=== PATIENT | female | born 1990 | race Hispanic/Latino ===

== ENCOUNTER 2021-06-16 14:08 | Inpatient (IN) | payer BC, OTHER ==
[~2021-06-16] VITALS: Ht 157.5 cm; Wt 72.6 kg
--- NOTE | 2021-06-18 12:52 | NUR ---
06/18/21 1252 Marina Mandujano 1132 PT ARRIVED IN PACU AWAKE AND ITCHING SKIN ON ARMS/CHEST. ANESTHESIA AWARE AND GAVE MEDS IN SURGERY. 1135 FBC RN AT BEDSIDE AND TC TO INTERPRETOR LINE TO HELP TRANSLATE. ON HOLD FOR 8 MINUTES AND DISCONNECTED. HELPING WITH TRANSLATION. 1143 TC TO INTERPRETOR LINE AND ON HOLD FOR 6 MINUTES WITH NO CONNECTION. HELPING TRANSLATE. 1155 TC TO ANESTHESIA FOR MEDICATION FOR PT'S ITCHING. 1209 NEW ORDERS RECEIVED. NUBAIN 10MG GIVEN SUB Q IN L ARM. FBC RN AT BEDSIDE. 1215 REPORT GIVEN TO RN.
--- NOTE | 2021-06-19 08:11 | PR ---
[facility] [address] [facility] [place], [place] [address] Signed PP Progress Notes Datetime Report Generated by CPN: 06/19/2021 08:11 SUBJECTIVE: [id number] Pain: Within Normal Limits Nausea/Vomiting: Denies Flatus: No Vital Signs: [id number] Vital Signs: Reviewed; Within Normal Limits EXAM: Ongoing Cardiovascular: Normal Respiratory: Normal Abdomen/Uterus: Abnormal Lochia: Normal Vulva/Perineum: Not Done Breasts: Not Done CVA Tenderness: Not Done Extremities: Normal Incision: Normal Progress: Abnormal Exam Comments: Abdomen with active BS. Fundus firm, NT @ U-2. H/H 10.5/31.4, WBC 8.6, plat 235k IMPRESSION/PLAN/PROCEDURES: [id number] Impression: Normal Progression Other Plans: ambulate, shower, Hoover out Progress Notes: Doing well. Signing Physician: Brigitte Lorenzo MD Copies: ~ *Electronically Signed* 06/19/21810 BRIGITTE LORENZO MD PATIENT NAME: LESLIE HARDY PROGRESS NOTE DATE OF : 88 PHYSICIAN: BRIGITTE LORENZO MD RPT #: [id number] REPORT IS CONFIDENTIAL AND NOT TO BE RELEASED WITHOUT AUTHORIZATION
--- NOTE | 2021-06-20 08:41 | PR ---
[facility] [address] [facility] [place], [place] [address] Signed PP Progress Notes Datetime Report Generated by CPMoses: 06/20/2021 08:41 SUBJECTIVE: [id number] Pain: Within Normal Limits Nausea/Vomiting: Denies Flatus: Yes Bowel Movement: No Vital Signs: [id number] Vital Signs: Reviewed; Within Normal Limits EXAM: Ongoing Cardiovascular: Normal Respiratory: Normal Abdomen/Uterus: Abnormal Lochia: Normal Vulva/Perineum: Not Done Breasts: Not Done CVA Tenderness: Not Done Extremities: Normal Incision: Normal Progress: Normal Exam Comments: Abdomen with active BS. Fundus firm, NT @ U-2. IMPRESSION/PLAN/PROCEDURES: [id number] Impression: Normal Progression Plan: Remove Elissa; Discharge Other Plans: ambulate, shower, Hoover out Procedures: None Progress Notes: Doing well except for gas pain. Encouraged ambulation and warm liquids. She is stable for discharge. Signing Physician: Brigitte Lorenzo MD Copies: ~ *Electronically Signed* 06/20/21 0841 BRIGITTE LORENZO MD PATIENT NAME: LESLIE HARDY PROGRESS NOTE DATE OF : 88 PHYSICIAN: BRIGITTE LORENZO MD RPT #: [id number] REPORT IS CONFIDENTIAL AND NOT TO BE RELEASED WITHOUT AUTHORIZATION
--- NOTE | 2021-06-25 09:46 | OR ---
[facility] [address] [place], [place] [address] Signed DATE OF OPERATION: 06/18/2021 SURGEON: Brigitte Lorenzo MD SPECIALIST MANAGERS: Deon Orosco MD. PREOPERATIVE DIAGNOSES: 37+ week , previous multiple myomectomy, gestational diabetes, cholestasis of . POSTOPERATIVE DIAGNOSES: 37+ week , previous multiple myomectomy, gestational diabetes, cholestasis of , delivered. PROCEDURE: Primary section with low segment transverse uterine incision. ANESTHESIA: Spinal. ESTIMATED BLOOD LOSS: 700 mL. DRAINS: Hoover catheter. INDICATIONS AND FINDINGS: The patient is a 31-year-old female, 3, para 0, SAB 2, who is now at 37 and 1/7th weeks admitted for primary section because of her history of multiple myomectomy. She has been counseled and wished to proceed. She was taken to the operating room and she was delivered of a little girl via lower segment transverse uterine incision from the ROP position with Apgars of 8 and 9 and weight of 7 pounds 1 ounce. Uterus appeared normal. The tubes and ovaries appeared normal as well. The placenta also appeared normal, though it was a little bit more adherent posteriorly than normally seen. DESCRIPTION OF PROCEDURE: The patient was prepped and draped in the supine position. A Pfannenstiel skin incision was made and carried down through the fascia. The incision was extended laterally. The Electronically Signed By: BRIGITTE LORENZO MD 06/25/21 0946 PATIENT NAME: LESLIE HARDY OPERATIVE REPORT DATE OF : 88 REPORT #: [id number] PHYSICIAN: BRIGITTE LORENZO MD PCP: NO PRIMARY CARE PHYSICIAN REPORT IS CONFIDENTIAL AND NOT TO BE RELEASED WITHOUT AUTHORIZATION [facility] [address] [place], [place] [address] Signed inferior and superior fascial flaps were then created. The muscles were bluntly divided and the peritoneum entered sharply and the incision extended bluntly. The Thierno retractor was then placed. An incision was made over the uterine surface at the upper aspect of the peritoneal reflection. This incision was extended bluntly. There was some difficulty with delivery of the baby's head and a tiny clip was made on the patient's left side to give just a little bit more room and the baby delivered at that point. There was a nuchal cord x1. Following this, the placenta was removed manually and the uterus explored showing no remaining fragments. The edges of the incision were identified and the uterus closed in 2 layers using 0 Monocryl. The first layer was a running locking stitch and the second was a vertical imbricating stitch. Additional [id number] sutures were required near the patient's right angle for control of bleeding. The abdomen was then copiously irrigated, inspected and good hemostasis was noted. The retractor was removed and the peritoneum identified. An ACell graft was then laid over the incision to aid in healing. The peritoneum was then closed in a running suture of 3-0 Vicryl. The muscles were brought together with interrupted sutures of 0 Vicryl. Bleeding points were controlled with cautery. This layer was then irrigated and inspected and good hemostasis was noted. ACell powder was sprinkled over the muscles to aid in healing. The fascia was then closed from each angle to the midline with a running suture of 0 Vicryl. Following this, the subcu space was irrigated and bleeding points controlled with cautery. The deep space was closed with interrupted sutures of 3-0 Vicryl. The skin was closed with lennox. All sponge and needle counts were correct. She tolerated procedure well and was taken to the recovery room in good condition. Brigitte Lorenzo MD PJW/MODL /[id number] cc: Deon Orosco MD Copies: DEON OROSCO MD ~ Electronically Signed By: BRIGITTE LORENZO MD 06/25/21 0946 PATIENT NAME: ROJAS LESLIE HAMPTON OPERATIVE REPORT DATE OF : 88 REPORT #: [id number] PHYSICIAN: BRIGITTE LORENZO MD PCP: NO PRIMARY CARE PHYSICIAN REPORT IS CONFIDENTIAL AND NOT TO BE RELEASED WITHOUT AUTHORIZATION
--- NOTE | 2021-06-27 09:24 | PATH ---
[facility] [place] [facility] [address] [place], [place] [address] Signed SPECIMEN(S): A PLACENTA SPECIMEN SOURCE: A. PLACENTA CLINICAL HISTORY: Mother's age: 31. OB history: A2. Gestational age: 37.1. Infant's weight: 7 lb 1 oz. score: 8/9. Antibody screen: Negative. Maternal serologies: Rubella immune. 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 FINAL PATHOLOGIC DIAGNOSIS: Placenta (540 grams), umbilical cord and membranes: - Placental weight: Approximately 77th percentile for gestational age. - Chorionic villi with - Appropriate maturation for gestational age. - Focal microcalcifications. - No significant villous infarction identified. - No evidence of trophoblastic disease. - Completeness of cotyledons cannot be ascertained due to fragmentation of placenta (see gross description). - Three-vessel umbilical cord without pathologic abnormality. - membranes with meconium staining (see comment). - No evidence of an infectious or inflammatory process. COMMENT: The membranes show incorporation of meconium into macrophages, indicating that the meconium staining seen grossly had been present for some time. TWK:[facility]:C2NR MICROSCOPIC EXAMINATION: Histologic sections of all submitted blocks are examined by light microscopy. These findings, together with the gross examination, support the pathologic diagnosis. GROSS DESCRIPTION: The specimen, labeled "GN, placenta," is received in formalin and consists of johnson discoid placenta with the following parameters: Umbilical cord: Insertion eccentric-4.4 cm from the margin, measurement 16.5 x 1.3 cm; trivascular. Cord coiling index (per 10 cm): Grossly indeterminate. Lesions: Not grossly identified. PATIENT NAME: LESLIE HARDY PATHOLOGY DATE OF : 88 REPORT #: [id number] PHYSICIAN: ANGELITA PATHOLOGY PCP: NO PRIMARY CARE PHYSICIAN REPORT IS CONFIDENTIAL AND NOT TO BE RELEASED WITHOUT AUTHORIZATION [facility] [place] [facility] [address] [place], [place] [address] Signed Membranes: Insertion site: Marginal, erickson, translucent with a markedly green hue, rupture site grossly indeterminate. Intact. Other: Not grossly identified. Chorionic Plate: Normal radiating vascular pattern, blue-purple, shiny with a slight green hue. Lesions: Not grossly identified. Other: Not grossly identified. Maternal Surface: The disc has a focal, 2.2 x 0.7 cm defect near the periphery. Due to the defect the intact nature of the cotyledons cannot be determined. Additionally the maternal surface has multiple, focal areas with your blood clot from less than 0.1 up to 0.5 cm in greatest dimension and comprising less than 5% of the disc. Lesions: Not grossly identified. Measurement: 17.7 x 17.2 x 3.7 cm. Weight (trimmed): 540 g Cut Surface: Maroon and spongy. Lesions: Not grossly identified. Basal plate fibrin 0.1 cm in thickness. Other Findings: Not grossly identified. Cassette Summary: (A1) membranes and umbilical cord (A2) eccentric section of placenta including defect (A3) central section of placenta (A4) eccentric section of placenta AI (under the direct supervision of a pathologist) The Gross Description was prepared using a voice recognition system. The report was reviewed for accuracy; however, sound-alike word errors, addition and/or deletions may occur. If there is any question about this report, please contact Client Services. PERFORMING LABORATORY: The technical component was performed by [facility], [address] [place] [address] (Airport Utility Worker: Mary Landon MD; CLIA# [id number]). Professional interpretation was performed by [facility], [address] [address] (CLIA# [id number]). Diagnostician: Sen Ferguson MD Pathologist Electronically Signed 06/27/2021 Copies: PATIENT NAME: LESLIE HARDY PATHOLOGY DATE OF : 88 REPORT #: [id number] PHYSICIAN: ANGELITA PATHOLOGY PCP: NO PRIMARY CARE PHYSICIAN REPORT IS CONFIDENTIAL AND NOT TO BE RELEASED WITHOUT AUTHORIZATION [facility] [place] [facility] [address] [place], [place] [address] Signed ~ PATIENT NAME: LESLIE HARDY PATHOLOGY DATE OF : [birth year] REPORT #: [id number] PHYSICIAN: ANGELITA GIRON PCP: NO PRIMARY CARE PHYSICIAN REPORT IS CONFIDENTIAL AND NOT TO BE RELEASED WITHOUT AUTHORIZATION
== END 2021-06-20 15:25 | disposition home or self-care (01) | DRG 786 ==
LOC: FBC 06-18 06:52
PROVIDERS: ADMIT Obstetrics & Gynecology; ATTEND Obstetrics & Gynecology
PROC: 10D00Z1 Extraction of Products of Conception, Low, Open Approach (ICD-10-PCS; principal; 2021-06-18 09:00)
DX: O34.29 Maternal care due to uterine scar from other previous surgery (principal); K83.1 Obstruction of bile duct; O26.62 Liver and biliary tract disorders in childbirth; O64.0XX0 Obstructed labor due to incomplete rotation of fetal head, not applicable or unspecified; O69.81X0 Labor and delivery complicated by cord around neck, without compression, not applicable or unspecified; O24.429 Gestational diabetes mellitus in childbirth, unspecified control; Z3A.37 37 weeks gestation of pregnancy; Z37.0 Single live birth
CPT/HCPCS: 01961; 85027; A9270; J0690; J1200; J2001; J2274; J2300; J2405; J2550; J2590; J2765; J7121; Q0177

== ENCOUNTER 2025-08-25 05:06 | Inpatient (IN) | payer BC, OTHER ==
[~2025-08-25] VITALS: Ht 160 cm; Wt 77.1 kg
[~2025-08-25 05:06] MED LIST: DEXTROSE 5% - NACL 0.45% 1,000 ML IV SCH; Insulin Regular 100 Unit/100 Ml Bag IV SCH
[2025-08-25] MEDS ORDERED: SOD+POT BICARB/CITRIC ACID 2 EA TABLET.EFF PO ONE (05:30)
[2025-08-25] MEDS ORDERED: LACTATED RINGER'S 1,000 ML IV PRN (05:30)
[2025-08-25] MEDS ORDERED: ACYCLOVIR 400 MG TAB PO ONE (05:30)
[2025-08-25 05:56] LABS: MCH 28.8 PG (25.6-32.2); MCHC 33.1 g/dL (32.2-35.5); MCV 86.9 fL (79.4-94.8); RBC 3.96 M/uL (3.93-5.22)
[2025-08-25 06:11] LABS: AMPHETAMINES, URINE NEGATIVE (NEGATIVE); BARBITURATES, URINE NEGATIVE (NEGATIVE); BENZODIAZEPINE, URINE NEGATIVE (NEGATIVE); CANNABINOID, URINE NEGATIVE (NEGATIVE); COCAINE, URINE NEGATIVE (NEGATIVE); ECSTASY, URINE NEGATIVE (NEGATIVE); FENTANYL, URINE NEGATIVE (NEGATIVE); METHADONE, URINE NEGATIVE (NEGATIVE); OPIATES, URINE NEGATIVE (NEGATIVE); OXYCODONE, URINE NEGATIVE (NEGATIVE); PHENCYCLIDINE, URINE NEGATIVE (NEGATIVE)
[2025-08-25 06:25] VITALS: BP 109/68
[2025-08-25 06:35] LABS: ABO O; RH POSITIVE
[2025-08-25 06:36] LABS: ANTIBODY SCREEN NEGATIVE
[2025-08-25] MEDS ORDERED: CEFAZOLIN SODIUM 2 GM in SODIUM CHLORIDE 0.9% 100 ML IV SCH (07:00)
[2025-08-25] MEDS ORDERED: fentaNYL citrate 100 MCG/2 ML VIAL ONE (07:21)
[2025-08-25] MEDS ORDERED: MORPHINE SULFATE 1 MG/ML VIAL ONE (07:21)
[2025-08-25] MEDS ORDERED: BUPIVACAINE 0.75% IN DEXTROSE 2 ML AMP ONE (07:23)
[2025-08-25] MEDS ORDERED: LIDOCAINE HCL 2% 5 ML SDV ONE (07:23)
[2025-08-25] MEDS ORDERED: PHENYLEPHRINE HCL IN 0.9% NACL 1 MG/10 ML SYR ONE ×2 (07:28→08:16)
[2025-08-25] MEDS ORDERED: DEXAMETHASONE SOD PHOS 4 MG/ML VIAL ONE (07:57)
[2025-08-25] MEDS ORDERED: Ropivacaine HCl 0.5% 30 ML VIAL ONE (07:58)
[2025-08-25] MEDS ORDERED: SODIUM CHLORIDE 0.9% 20 ML IV ONE (07:58)
[2025-08-25] MEDS ORDERED: NALOXONE HCL 0.4 MG SYR IV PRN ×2 (08:30)
[2025-08-25] MEDS ORDERED: IBLOOD GLUCOSE TEST STRIP 1 EA TEST VI PRN (08:30)
[2025-08-25] MEDS ORDERED: KETOROLAC TROMETHAMINE 30 MG/ML VIAL IV PRN ×2 (08:30)
[2025-08-25] MEDS ORDERED: HYDROmorphone HCL 1 MG/ML SYR IV PRN (08:30)
[2025-08-25] MEDS ORDERED: LACTATED RINGER'S 1,000 ML IV SCH (08:56)
[2025-08-25] MEDS ORDERED: HYDROCODONE/ACETA 5/325 TAB PO PRN (09:00)
[2025-08-25] MEDS ORDERED: METOCLOPRAMIDE HCL 10 MG/2 ML SDV IV PRN (09:00)
[2025-08-25] MEDS ORDERED: OXYCODONE/APAP 5/325 TAB PO PRN (09:00)
[2025-08-25] MEDS ORDERED: PROMETHAZINE HCL 25 MG TAB PO PRN (09:00)
[2025-08-25] MEDS ORDERED: PROCHLORPERAZINE EDISYLATE 10 MG/2 ML VIAL IV PRN (09:00)
[2025-08-25] MEDS ORDERED: SENNOSIDES/DOCUSATE 1 EA TAB PO SCH (09:00)
[2025-08-25] MEDS ORDERED: OXYTOCIN/0.9 % SODIUM CHLORIDE 500 ML IV SCH (09:00)
[2025-08-25] MEDS ORDERED: PROMETHAZINE HCL 25 MG SUPP PR PRN (09:00)
[2025-08-25 09:34] VITALS: BP 89/50
--- NOTE | 2025-08-25 09:41 | NUR ---
08/25/25 0941 Nata Lehman 0855- FUNDAL CHECK DONE IN THE OR. SMALL CLOT NOTED. 0856- PT ARRIVES TO ROOM. PT DENIES PAIN AND NAUSEA. PT RESTING. ALL MONITORS PUT IN PLACE. VSS. PT HAS A NATURAL AIRWAY AND IS ANSWERING QUESTIONS APPROPRIATELY. PT IS [facility] SPEAKING. FBC NURSE AT BEDSIDE. 2 IV SITES. ONE IN THE LEFT FOREARM AND ONE IN THE RIGHT. THE ONE ON THE LEFT IS INFUSING LR, AND THE ONE IN THE RIGHT IS SALINE LOCKED, WNL. 0906- BABY IS ON MOTHERS CHEST. 0910- MOTHERS CBG IS 98 AT THIS TIME. 0913- MOTHER IS RESTING WITH EYES CLOSED. SHE EASILY WAKES TO VERBAL STIMULI. SMALL AMOUNT OF SNORING NOTED. 0924- BEDSIDE REPORT GIVEN TO CHUY RAMOS. ALL QUESTIONS AND CONCERNS ANSWERED. BABY IS AT BREAST. PT IS RESTING WITH EYES CLOSED. CARE TURNED OVER AT THIS TIME.
[2025-08-25] MEDS ORDERED: SIMETHICONE 80 MG CHEW PO SCH (11:00)
[2025-08-25] MEDS ORDERED: KETOROLAC TROMETHAMINE 30 MG/ML VIAL IV SCH (14:00)
[2025-08-25] MEDS ORDERED: ENOXAPARIN SODIUM 40 MG/0.4 ML SYR SUB-Q SCH (16:00)
[2025-08-26] MEDS ORDERED: LACTATED RINGER'S 1,000 ML IV SCH (05:00)
[2025-08-26 05:16] LABS: MCH 29.4 PG (25.6-32.2); MCHC 33.4 g/dL (32.2-35.5); MCV 87.8 fL (79.4-94.8); RBC 3.37 M/uL (3.93-5.22)
--- NOTE | 2025-08-26 08:33 | PR ---
[facility] [address] [facility] [place], [place] [address] Signed PP Progress Notes Datetime Report Generated by CPN: 08/26/2025 08:32 SUBJECTIVE: [id number] Pain: Within Normal Limits Nausea/Vomiting: Denies Flatus: Yes Bowel Movement: No Vital Signs: [id number] Vital Signs: Reviewed EXAM: Ongoing EXAM: Ongoing Cardiovascular: Normal Respiratory: Normal Abdomen/Uterus: Normal Lochia: Normal Vulva/Perineum: Not Done Breasts: Not Done CVA Tenderness: Normal Extremities: Normal Incision: Normal Progress: Normal Exam Comments: Fundus firm U-2 nontender IMPRESSION/PLAN/PROCEDURES: [id number] Impression: Normal Progression Plan: Continue Present Management Progress Notes: Pt seen and examined. Doing well. Ambulating and tolerating full diet. Hoover out. No concerns. Pain and lochia minimal. Breastefeding. Hgb 9.9. Desires d/c home tomorrow. Signing Physician: Ascencion Rockwell DO Copies: ~ *Electronically Signed* 08/26/25 0832 ASCENCION ROCKWELL (ELIA) DO PATIENT NAME: LESLIE HARDY PROGRESS NOTE DATE OF : 88 PHYSICIAN: ASCENCION ROCKWELL (ELIA) DO RPT #: [id number] REPORT IS CONFIDENTIAL AND NOT TO BE RELEASED WITHOUT AUTHORIZATION
[2025-08-26] MEDS ORDERED: IBUPROFEN 600 MG TAB PO SCH (14:00)
--- NOTE | 2025-08-27 07:48 | PR ---
[facility] [address] [place], [place] [address] Signed PP Progress Notes Datetime Report Generated by CPN: 08/27/2025 07:48 Pain: Within Normal Limits Nausea/Vomiting: Denies Flatus: Yes BM Comments: loose stools Vital Signs: Reviewed; Within Normal Limits EXAM: Ongoing EXAM: Ongoing Cardiovascular: Normal Respiratory: Normal Abdomen/Uterus: Normal Lochia: Normal Vulva/Perineum: Not Done Breasts: Not Done CVA Tenderness: Normal Extremities: Normal Incision: Normal Progress: Normal Exam Comments: Fundus firm U-2 nontender. Incision healing well Impression: Normal Progression Plan: Remove Buckner; Discharge Progress Notes: Pt seen and examined. Doing well. Ambulating, voiding, and tolerating full diet. Pain and lochia minimal. Breast and bottle feeding. No concerns. Desires d/c home today. Reviewed medications, d/c instructions, and course. Rx's sent electronically. Reviewed GDM and recommended pt check glucose levels at home is they feel high or low. Will perform 2 hr fasting glucose 6-12 wks pp. All questions answered. Elissa out prior to d/c Signing Physician: Ascencion Rockwell DO Copies: ~ *Electronically Signed* 08/27/25 0748 ASCENCION ROCKWELL (ELIA) DO PATIENT NAME: LESLIE HARDY PROGRESS NOTE DATE OF : 88 PHYSICIAN: ASCENCION ROCKWELL (JD) DO RPT #: [id number] REPORT IS CONFIDENTIAL AND NOT TO BE RELEASED WITHOUT AUTHORIZATION
--- NOTE | 2025-08-29 11:42 | PATH ---
[facility] [address] [place], [place] [address] Signed SPECIMEN(S): A FALLOPIAN TUBES, BILATERAL SPECIMEN SOURCE: A. FALLOPIAN TUBES, BILATERAL CLINICAL HISTORY: Repeat FINAL PATHOLOGIC DIAGNOSIS: Bilateral fallopian tubes: - Two segments of benign fimbriated oviduct. JVR MICROSCOPIC EXAMINATION: Histologic sections of all submitted blocks are examined by light microscopy. These findings, together with the gross examination, support the pathologic diagnosis. GROSS DESCRIPTION: The specimen, labeled and designated "Reynoso-Saldivar, bilateral fallopian tubes," is received in formalin and consists of two red-brown fimbriated fallopian tube segments (8.2 cm in length and ranging in diameter from 0.7 to 1.4 cm, and 9.0 cm in length and ranging in diameter from 0.9 to 2.3 cm). One of the segments contains a paratubal cysts (1.8 x 1.5 x 1.4 cm), and the segment is inked blue. Both segments are serially sectioned to reveal red-brown soft cut surfaces. The paratubal cyst is sectioned to reveal a clear viscous material. Sales And Marketing Coordinator sections including the fimbriae entirely are submitted in cassette (A1-A2). VB (under the direct supervision of a pathologist) The Gross Description was prepared using a voice recognition system. The report was reviewed for accuracy; however, sound-alike word errors, addition and/or deletions may occur. If there is any question about this report, please contact Client Services. ADDITIONAL NOTES: Immunohistochemical and/or in situ hybridization studies if performed in this case included appropriate positive controls that reacted as expected. This test was developed and its performance characteristics determined by [facility]. It has not been cleared or approved by the U.S. Food and Drug Administration. The FDA has determined that PATIENT NAME: LESLIE HARDY PATHOLOGY DATE OF : 88 REPORT #: [id number] PHYSICIAN: ANGELITA GIRON PCP: KAUSHIK HOWELL CNM REPORT IS CONFIDENTIAL AND NOT TO BE RELEASED WITHOUT AUTHORIZATION [facility] [address] [facility] [place], [place] [address] Signed such clearance or approval is not necessary. This test is used for clinical purposes. It should not be regarded as investigational or for research. [facility] is certified under the Clinical Laboratory Improvement Amendments of 1988 (CLIA) as qualified to perform high complexity clinical laboratory testing. PERFORMING LABORATORY: Technical component was performed by [facility], [address] [place] [address] (CLIA# [id number]). Professional interpretation was performed by [facility] [place] - [address] [place] [address] (CLIA#: [id number]). Diagnostician: Kit Esteban MD Pathologist Electronically Signed 08/29/2025 Copies: ~ PATIENT NAME: LESLIE HARDY PATHOLOGY DATE OF : 88 REPORT #: [id number] PHYSICIAN: ANGELITA GIRON PCP: KAUSHIK HOWELL CNM REPORT IS CONFIDENTIAL AND NOT TO BE RELEASED WITHOUT AUTHORIZATION
== END 2025-08-27 11:09 | disposition home or self-care (01) | DRG 785 ==
LOC: FBC 05:06
PROVIDERS: ADMIT Obstetrics & Gynecology; ATTEND Obstetrics & Gynecology
PROC: 0UT70ZZ Resection of Bilateral Fallopian Tubes, Open Approach (ICD-10-PCS; 2025-08-25)
PROC: 3E03329 Introduction of Other Anti-infective into Peripheral Vein, Percutaneous Approach (ICD-10-PCS; 2025-08-25)
PROC: 10D00Z1 Extraction of Products of Conception, Low, Open Approach (ICD-10-PCS; principal; 2025-08-25 07:30)
DX: O34.211 Maternal care for low transverse scar from previous cesarean delivery (principal); O24.424 Gestational diabetes mellitus in childbirth, insulin controlled; Z3A.37 37 weeks gestation of pregnancy; Z37.0 Single live birth; Z79.899 Other long term (current) drug therapy
CPT/HCPCS: 01961; 36415; 80307; 85027; 86850; 86900; 86901; A9270; J0165; J0688; J1100; J1650; J1885; J2003; J2274; J2405; J2795; J3010; J7042; J7121